=== PATIENT | female | born 1990 | race Native Hawaiian/Other Pacific Islander ===

== ENCOUNTER 2017-05-03 03:21 | Emergency (ER) | payer OTHER ==
[2017-05-03 03:40] VITALS: PULSE 90; RESP 18; TEMP 98.7; O2SAT 100
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
[2017-05-03 05:48] VITALS: BP 113/62
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
== END 2017-05-03 06:47 | disposition home or self-care (01) ==
LOC: H.ER 03:21
DX: S09.90XA Unspecified injury of head, initial encounter (principal); E11.9 Type 2 diabetes mellitus without complications; I10 Essential (primary) hypertension; V89.2XXA Person injured in unspecified motor-vehicle accident, traffic, initial encounter